=== PATIENT | female | born 1985 | race Caucasian/White ===

== ENCOUNTER → 2016-08-25 | Outpatient (CLI) | payer OTHER ==
[~2016-08-25] MED LIST: DSY/150 PO; KLN1X PO; PRENTAB26 PO; PRX/40 PO; PXL20 PO; WLLSR100 PO
== END | disposition home or self-care (01) ==
LOC: C.PAPS 14:29
PROVIDERS: ATTEND Obstetrics & Gynecology
DX: Z34.91 Encounter for supervision of normal pregnancy, unspecified, first trimester (principal)

== ENCOUNTER → 2016-08-25 | Outpatient (CLI) | payer OTHER ==
[2016-08-25 14:24] LABS: URINE APPEARANCE CLEAR (CLEAR); URINE BILIRUBIN NEG (NEG); URINE COLOR YELLOW; URINE NITRITE NEG (NEG); UROBILINOGEN NEG (NEG)
[2016-08-25 14:33] LABS: MANUAL MICROSCOPIC REQUIRED? NO; REVIEW REQ? NO
[2016-08-31 03:24] LABS: CHLAMYDIA TRACH RNA*** NOT DETECTED (NOT DETECTED); GC (NEIS GONORRHOEAE)RNA** NOT DETECTED (NOT DETECTED)
== END | disposition home or self-care (01) ==
LOC: C.LABSPEC 13:53
PROVIDERS: ATTEND Obstetrics & Gynecology
DX: O26.619 Liver and biliary tract disorders in pregnancy, unspecified trimester (principal); Z3A.00 Weeks of gestation of pregnancy not specified

== ENCOUNTER → 2016-08-25 | Outpatient (CLI) | payer OTHER ==
[2016-08-25 12:09] LABS: BASO % 0.2 %; BASO ABS # 0.02 K/uL (0-0.2); COMPLETE YES; EOS % 0.7 %; HEMATOCRIT 39.5 % (37-47); IG% 0.2 %; LYMPH % 23.2 %; LYMPH ABS # 2.87 K/uL (1.2-3.4); MEAN CELL VOLUME 83.3 fL (80-100); MEAN CORPUSCULAR HEMOGLOBIN 29.3 pg (25-34); MEAN CORPUSCULAR HGB CONC 35.2 g/dl (32-36); MONO % 4.5 %; NEUT % 71.2 %; PLATELET COUNT 291 K/uL (130-400); RED BLOOD COUNT 4.74 M/uL (4.2-5.4); WHITE BLOOD COUNT 12.35 K/uL (4.8-10.8)
[2016-09-02 18:18] LABS: CHENODEOXYCHOLIC ACID 1.9 umol/L (< OR = 3.1); CHOLIC ACID <0.5 umol/L (< OR = 1.8); DEOXYCHOLIC ACID <0.5 umol/L (< OR = 2.4); TOTAL BILE ACIDS 1.9 umol/L (< OR = 6.8)
== END | disposition home or self-care (01) ==
LOC: C.LAB1850 11:00
PROVIDERS: ATTEND Obstetrics & Gynecology
DX: Z34.90 Encounter for supervision of normal pregnancy, unspecified, unspecified trimester (principal)

== ENCOUNTER → 2016-10-24 | Outpatient (CLI) | payer OTHER ==
[2016-10-24 19:03] LABS: GTGD 50 Grams
[2016-10-26 17:41] LABS: AFP CONCENTRATION 50.4 NG/ML; AFP MULTIPLE OF MEDIAN 1.76; AFPTS GESTATIONAL AGE 17.9 WEEKS; AFPTS INSULIN DEP DIABETIC? NO; AFPTS MATERNAL WT 285 LBS; ALPHA-FETOPROTEIN RACE CAUCASIAN=W; ESTRIOL MULTIPLE OF MEDIAN 0.65; HISTORY OF NTD NO; INHIBIN A 393 PG/ML; INHIBIN A MOM 3.08; REPEAT SAMPLE? NO; hCG MULTIPLE OF MEDIAN 1.68
== END | disposition home or self-care (01) ==
LOC: C.LAB1850 12:26
PROVIDERS: ATTEND Obstetrics & Gynecology
DX: Z34.92 Encounter for supervision of normal pregnancy, unspecified, second trimester (principal)

== ENCOUNTER → 2017-01-10 | Outpatient (CLI) | payer OTHER ==
[~2017-01-10] MED LIST changes: +ACET-749 PO; +MTR600X PO; +OXYC-57 PO
[2017-01-10 15:02] LABS: URINE APPEARANCE CLEAR (CLEAR); URINE BILIRUBIN NEG (NEG); URINE COLOR YELLOW; URINE EPITHELIAL CELL AUTO >30 /lpf (0-5); URINE NITRITE NEG (NEG); URINE PH 7.5 (4.5-7.5); URINE SPECIFIC GRAVITY 1.015 (1.000-1.030); UROBILINOGEN NEG (NEG)
[2017-01-10 15:04] LABS: MANUAL MICROSCOPIC REQUIRED? NO; REVIEW REQ? NO
== END | disposition home or self-care (01) ==
LOC: C.LABSPEC 13:51
PROVIDERS: ATTEND Obstetrics & Gynecology
DX: Z34.93 Encounter for supervision of normal pregnancy, unspecified, third trimester (principal)

== ENCOUNTER → 2017-01-10 | Outpatient (CLI) | payer OTHER ==
[2017-01-10 13:30] LABS: HEMATOCRIT 32.6 % (37-47)
[2017-01-10 13:56] LABS: GTGD 50 Grams
== END | disposition home or self-care (01) ==
LOC: C.LAB1850 12:05
PROVIDERS: ATTEND Obstetrics & Gynecology
DX: Z34.93 Encounter for supervision of normal pregnancy, unspecified, third trimester (principal)

== ENCOUNTER → 2017-03-08 | Outpatient (CLI) | payer OTHER ==
[~2017-03-08] MED LIST changes: -ACET-749 PO; -MTR600X PO; -OXYC-57 PO
== END | disposition home or self-care (01) ==
LOC: C.LABSPEC 17:47
PROVIDERS: ATTEND Obstetrics & Gynecology
DX: Z34.93 Encounter for supervision of normal pregnancy, unspecified, third trimester (principal)

== ENCOUNTER 2017-03-28 23:13 | Inpatient (IN) | payer OTHER ==
[~2017-03-28] VITALS: Ht 167.6 cm; Wt 138.0 kg
[~2017-03-28 23:13] MED LIST changes: -PRENTAB26 PO
[2017-03-28] MEDS ORDERED: LACTATED RINGER'S 1000ML 1,000 ML IV SCH (23:33)
[2017-03-28] MEDS ORDERED: LACTATED RINGER'S 1000ML 1,000 ML IV PRN (23:33)
[2017-03-29 00:11] LABS: MEAN CELL VOLUME 82.9 fL (80-100); MEAN CORPUSCULAR HEMOGLOBIN 28.4 pg (25-34); MEAN CORPUSCULAR HGB CONC 34.2 g/dl (32-36); MEAN PLATELET VOLUME 11.7 fL (7.4-10.4); PLATELET COUNT 255 K/uL (130-400); RED BLOOD COUNT 3.98 M/uL (4.2-5.4); WHITE BLOOD COUNT 15.11 K/uL (4.8-10.8)
[2017-03-29] MEDS ORDERED: FENTANYL 2MCG/ML ROPIV 1.25MG/ML 100ML BAG EPI ONE (00:14)
[2017-03-29] MEDS ORDERED: BUPIVACAINE 0.25% 30 ML VIAL ONE (00:14)
[2017-03-29] MEDS ORDERED: EpHEDrine SULFATE INJ 50 MG/ML AMP ONE (00:14)
[2017-03-29] MEDS ORDERED: FENTANYL CITRATE INJ 50 MCG/1 ML 2 ML VIAL ONE (00:15)
[2017-03-29] MEDS ORDERED: LACTATED RINGER'S 1000ML 500 ML IV PRN (01:10)
[2017-03-29] MEDS ORDERED: NALOXONE HCL INJ 1 MG in SODIUM CHLORIDE 0.9% 1000ML 1,000 ML IV PRN (01:10)
[2017-03-29] MEDS ORDERED: ONDANSETRON INJ 2 MG/ML 2 ML VIAL IV PRN (01:15)
[2017-03-29] MEDS ORDERED: EpHEDrine SULFATE INJ 50 MG/ML AMP IV PRN (01:15)
[2017-03-29] MEDS ORDERED: DiphenhydrAMINE HCL 50 MG/ML VIAL IV PRN (01:15)
[2017-03-29] MEDS ORDERED: NALOXONE HCL INJ 0.4 MG/1 ML VIAL/CARP IV PRN (01:15)
[2017-03-29] MEDS ORDERED: NALBUPHINE HCL INJ 10 MG/ML AMP IV PRN (01:15)
[2017-03-29] MEDS ORDERED: FENTANYL 2MCG/ML ROPIV 1.25MG/ML 100ML BAG EPI PRN (01:15)
[2017-03-29 04:39] VITALS: Ht 167.6 cm; Wt 138.0 kg
[2017-03-29] MEDS ORDERED: PRENTAB26 PO (04:48)
[2017-03-29] MEDS ORDERED: ACETAMINOPHEN 325 MG TAB PO PRN (05:15)
[2017-03-29] MEDS ORDERED: LACTATED RINGER'S 1000ML 1,000 ML IV SCH (07:45)
[2017-03-29] MEDS ORDERED: OXYTOCIN 30 UNITS/500ML NSS IV ONE (09:02)
--- NOTE | 2017-03-29 09:23 | Vaginal Delivery Summary ---
Vaginal Delivery Summary The patient dilated to complete and pushed to deliver a viable male Apgars 8 and 9 via over intact perineum. Anterior shoulder initially delivered with maternal expulsive efforts prior to suctioning the mouth and nose. However, after suctioning mouth and nose shoulder had slipped back up. With effective maternal expulsive efforts and gentle downward traction anterior shoulder delivered followed by the remaining body. Infant vigorous and crying at . Cord clamped at 30 seconds of life. Infant to maternal abdomen. Cord doubly clamped and cut. Placenta delivered spontaneously and intact 3 vessel cord. Hemostasis was not achieved with dilute Pitocin and uterine massage. Bladder drained for clear yellow urine of approximately 100 cc's. 800 mg of rectal Cytotec administered to aid in hemostasis. Hemostasis then became more adequate. EBL 500 cc. Cervix and sulci intact. Mother and baby stable in recovery.
[2017-03-29] MEDS ORDERED: METHYLERGONOVINE MALEATE 0.2 MG/ML AMP IM ONE (09:30)
[2017-03-29] MEDS ORDERED: SUPERCREAM 0.870 % 15GM JAR EXT PRN (09:30)
[2017-03-29] MEDS ORDERED: HYDROCORTISONE ACETATE 25 MG SUPP PR PRN (09:30)
[2017-03-29] MEDS ORDERED: OXYTOCIN 30 UNITS/500ML NSS IV PRN (09:30)
[2017-03-29] MEDS ORDERED: LANOLIN OINT EXT PRN ×2 (09:30)
[2017-03-29] MEDS ORDERED: BENZOCAINE 20% AER SPR 82.5 GM CAN EXT PRN (09:30)
[2017-03-29] MEDS ORDERED: MISOPROSTOL 200 MCG TAB PR STA (09:36)
[2017-03-29] MEDS: OXYTOCIN INJ 20 UNITS in LACTATED RINGER'S 1000ML 1,000 ML IV SCH (10:20)
--- NOTE | 2017-03-29 11:54 | Anesthesia Procedure Note ---
Anesthesia Epidural Removal Nt Date & Time Mar 29, 2017 at 11:54 Vital Signs Pain Intensity: 0.0 Notes Mental Status: alert / awake / arousable, participated in evaluation Nausea / Vomiting: adequately controlled Pain: adequately controlled Airway Patency, RR, SpO2: stable & adequate BP & HR: stable & adequate Hydration State: stable & adequate Neuraxial Anesthesia: was administered Anesthetic Complications: no major complications apparent, pt satisfied with anesthetic care Epidural: removed without complications, with tip intact
[2017-03-29 12:15] VITALS: BP 120/71; PULSE 96; TEMP 36.9
[2017-03-29] MEDS: IBUPROFEN 600 MG TAB PO PRN (12:22)
[2017-03-29 12:25] VITALS: BP 120/71; PULSE 96; TEMP 36.9; O2SAT 99
[2017-03-29] MEDS: ACETAMINOPHEN 325 MG TAB PO PRN ×2 (13:35→18:43)
[2017-03-29 16:00] VITALS: BP 119/70; PULSE 90; TEMP 36.7
[2017-03-29 19:40] VITALS: BP 100/60; PULSE 96; TEMP 36.9
[2017-03-29] MEDS: DOCUSATE SODIUM 100 MG CAP PO SCH (19:42)
[2017-03-30 00:15] VITALS: BP 128/72; PULSE 90; TEMP 36.6
[2017-03-30 05:00] VITALS: BP 106/70; PULSE 88; TEMP 36.7
[2017-03-30] MEDS: IBUPROFEN 600 MG TAB PO PRN (05:14)
[2017-03-30 05:45] LABS: HEMATOCRIT 30.6 % (37-47)
--- NOTE | 2017-03-30 06:32 | Progress Note ---
Subjective Mar 30, 2017. Subjective conversation w/ patient, physical exam Ambulation: ambulating normally Voiding: no voiding problems Diet Tolerance: Regular Diet Lochia: Small Feeding Type: Bottle Feeding Pain: no pain issues Objective Vital Signs Date Time Temp Pulse Resp B/P (MAP) Pulse Ox O2 Delivery O2 Flow Rate FiO2 03/30/17 05:00 36.7 88 20 106/70 (82) Room Air 03/30/17 00:15 Room Air 03/30/17 00:15 36.6 90 18 128/72 (90) Room Air 03/29/17 19:40 36.9 96 18 100/60 (73) 03/29/17 16:15 Room Air 03/29/17 16:00 36.7 90 16 119/70 (86) Room Air 03/29/17 12:25 Room Air 03/29/17 12:25 36.9 96 16 120/71 (87) 99 Room Air 03/29/17 12:15 36.9 96 16 120/71 Physical Exam General Appearance: WELL-APPEARING, WD/WN, NO APPARENT DISTRESS Respiratory/Chest: lungs clear Cardiovascular: regular rate, rhythm Abdomen: non tender, soft Fundus: Firm, Relation to Umbilicus (2 down) Extremities: non-tender Laboratory Results Last 24 Hours Test 03/30/17 05:20 Hemoglobin 10.0 g/dL Hematocrit 30.6 % Assessment and Plan Post- Day#: 1 Continue Routine Care: stable, routine care, if baby able to be discharged, pt would like to go home. instructions reviewed. f/u 6 wk pp. expresses desire for interval tubal. rec she stop by office and see surgery nurse to sign MA tubal papers. she verbalized understanding.
--- NOTE | 2017-03-30 06:34 | Discharge Instructions ---
Discharge Instructions Date of Service Mar 30, 2017. Admission Reason for Admission: Check Labor Discharge Discharge Diagnosis / Problem: after delivery Discharge Goals Goal(s): Routine recovery after delivery Medications Continue Dispensed Medications: supercream, dermaplast, tucks, lansinoh Activity Recommendations Activity Limitations: as noted below ACTIVITY RECOMMENDATIONS: * Gradual return to full activity over the next 2-3 weeks. * No lifting - nothing heavier than baby over the next 2-3 weeks. * Do not engage in vigorous exercise, sexual activity or sports until cleared by your physician. * Do not drive or operate any motorized equipment until cleared by your physician. * You may shower/bathe daily. MEDICATIONS: For discomfort or pain, you may use Acetaminophen (Tylenol), Ibuprofen (Advil), or Naproxen (Aleve) following the package directions. For constipation you may use Colace following the package directions. BREAST CARE: If you are not breast feeding: * Wear a supportive bra 24 hours a day for one to two weeks. * Avoid stimulating your breasts and nipples as much as possible during the first few weeks after delivery. * When taking a shower, have the warm water hit your back, not breasts. * When your breasts feel full, apply ice packs. Usually three to four times a day helps ease the discomfort. * Take a mild pain medication (Tylenol / Motrin) when you are uncomfortable. If breast feeding: * Use breast milk to lubricate nipples. Lansinoh cream may be used for sore nipples. You do not need to remove cream prior to breast feeding. If using a different brand of cream, check the label for directions regarding removal of cream prior to nursing. * Wear a supportive bra. * If having problems with breasts or breast feeding, call a managing consultant clinical professor or your health care provider. EPISIOTOMY CARE: After delivery, if you have an episiotomy (stitches), the following steps will ease discomfort and aid healing. * For the first 24 hours after delivery, place ice packs next to your episiotomy to help reduce swelling. * After the first 24 hour-period, sitz baths, either portable or in the tub, are suggested. A shower with a shower arm sprayed over the episiotomy may be comforting. * Mary care should be done after each voiding and bowel movement. Squirt warm water from a plastic bottle over the perineum (region of the body between the anus and urinary opening) and pat dry. * Use Dermoplast to ease discomfort. Shake container. [place] directly over the episiotomy. Place a Tucks on a clean sanitary pad next to your episiotomy. SPECIAL CARE INSTRUCTIONS: When you are discharged from the hospital, it is important for you to follow the instructions listed below: * During the first week at home, you should be able to care for yourself and your baby. In addition, the usual light household activities are encouraged. * Limit your activities to the way you feel. Do not try to clean the house or move furniture. Be sensible. * If you actively engage in sports and have done so up until the time of your delivery, you may resume these activities as soon as you feel able. This may take up to one month or even longer. Use good judgment. * Continue to take your vitamins for at least six weeks after the of your baby. * Your diet need not be limited unless you were on a special diet before your delivery. Breast-feeding mothers need around 2500 calories per day and at least 64-80 ounces of fluid per day (8 to 10 glasses). * You should eat foods from the four major food groups. Crash diets or fad diets are to be avoided. Eating lean meats, fresh fruits and vegetables, low-fat dairy products, high fiber foods and a regular exercise program, will help you get back to your pre- weight without putting your health at risk. * Constipation is sometimes a problem after delivery. Take a mild laxative as needed. If breast feeding, Milk of Magnesia is acceptable to use. You may use a suppository or Fleets enema if no episiotomy. * A daily shower or tub bath is suggested. Be sure to thoroughly and gently dry the perineum. * A bloody vaginal discharge will usually continue until around four weeks post . A small amount of bleeding may continue for as long as six weeks. Vaginal discharge changes from the bright red bleeding after delivery to pink then brownish and finally yellowish-pink before becoming white and disappearing. * Bleeding may increase with activity. Your first period may come in 4-8 weeks. If you are breast feeding, your period may be delayed even longer. * [place] (sex) can begin whenever both you and your partner feel comfortable and do not have any form of genital infection. It is recommended that you wait at least six weeks for internal and external healing to occur. If you have questions, please talk to your health care practitioner. A condom should be used to prevent infection and . * Foreplay, gentle intercourse and lubrication is very important the first several times to prevent pain. A water-based lubricant such as K-Y jelly or Astroglide may be used. * If you have RH negative blood and your baby is RH positive, you will receive RHOGAM by injection prior to discharge. The nurse will give you a card to keep with you that has the date and place that you received RHOGAM after delivery. * During your care, you had a Rubella screen done to check for the presence of rubella antibodies in your blood. If your test was negative, you will receive a Rubella vaccine prior to discharge. This vaccine may cause a fever, soreness at the injection site and flu-like symptoms. If these symptoms persist, notify your health care practitioner. is not advised for one month after a Rubella vaccine. * Verbalizes understanding of car seat law as reviewed with patient nursing. * Car Seat hand-out given and reviewed with patient by nursing. * Shaken baby information reviewed with patient by nursing. Call you doctor if: * Heavy bleeding (saturating several pads an hour) or passing clots the size of your fist. * A fever >101 degrees F (38.3 degrees C) on two occasions four hours apart and /or chills. * Unusual pain in the pelvic or vaginal areas. * "Baby Blues" lasting longer than two weeks. If you have any questions or concerns, call your health care practitioner at . FOLLOW UP VISIT: * Please call the office at to schedule a 6 week examination. It is important you keep this appointment. It is important for you to make arrangements for either yearly or twice yearly check-ups thereafter. . Current Hospital Diet Patient's current hospital diet: Regular OB Diet Discharge Diet Recommended Diet: Regular Diet Pending Studies Studies pending at discharge: no Medical Emergencies . Who to Call and When: Medical Emergencies: If at any time you feel your situation is an emergency, please call 911 immediately. . Non-Emergent Contact Non-Emergency issues call your: Associate Professor Of Criminal Justice . . "Provider Documentation" section prepared by Racquel Aponte. . VTE Core Measure Inpt VTE Proph given/why not?: Treatment not indicated
[2017-03-30] MEDS: OXYTOCIN INJ 20 UNITS in LACTATED RINGER'S 1000ML 1,000 ML IV SCH (07:40)
[2017-03-30 08:00] VITALS: BP 103/66; PULSE 87; TEMP 36.5
[2017-03-30] MEDS ORDERED: PRENATAL VITAMIN TAB PO SCH ×2 (08:00)
[2017-03-30] MEDS: DOCUSATE SODIUM 100 MG CAP PO SCH (08:59)
[2017-03-30] MEDS ORDERED: NICOTINE 21 MG/24 HR TDSY TD SCH (09:00)
[2017-03-30 16:00] VITALS: BP 110/72; PULSE 88; TEMP 36.6
[2017-03-30 16:44] VITALS: BP_DIAS 72; PULSE 88; TEMP 36.6
[2017-03-30] MEDS ORDERED: BISACODYL 5 MG TABEC PO SCH (20:00)
== END 2017-03-30 17:05 | disposition home or self-care (01) | DRG 775 ==
LOC: C.LD 23:13 → C.OPB 23:13 → C.LD 23:35 → C.MS4N 03-29 12:06
PROVIDERS: ADMIT Obstetrics & Gynecology; ATTEND Obstetrics & Gynecology
PROC: 10E0XZZ Delivery of Products of Conception, External Approach (ICD-10-PCS; principal; 2017-03-29)
DX: O26.33 Retained intrauterine contraceptive device in pregnancy, third trimester (principal); Z68.42 Body mass index [BMI] 45.0-49.9, adult; O99.334 Smoking (tobacco) complicating childbirth; F17.210 Nicotine dependence, cigarettes, uncomplicated; O99.214 Obesity complicating childbirth; Z37.0 Single live birth; Z3A.40 40 weeks gestation of pregnancy

== ENCOUNTER → 2017-07-05 | Outpatient (CLI) | payer OTHER ==
[~2017-07-05] MED LIST changes: +ACET-749 PO; -DSY/150 PO; -KLN1X PO; +MTR600X PO; +OXYC-57 PO; -PRX/40 PO; -PXL20 PO; -WLLSR100 PO
== END | disposition home or self-care (01) ==
LOC: C.LAB 11:47
PROVIDERS: ATTEND Obstetrics & Gynecology
DX: Z86.14 Personal history of Methicillin resistant Staphylococcus aureus infection (principal)

== ENCOUNTER 2017-07-07 09:02 | Day surgery (SDC) | payer OTHER ==
[2017-06-21 09:00] VITALS: BMI 39.0
[2017-06-28 11:05] LABS: PREG INTERNAL NEGATIVE QC NEG CLEAR BACKGROUND; PREG INTERNAL POSITIVE QC POS CONTROL LINE
[~2017-07-07] VITALS: Ht 167.6 cm; Wt 109.1 kg
[~2017-07-07 09:02] MED LIST changes: -ACET-749 PO; +ACETAMINOPHEN 1000 MG/100 ML IV IV ONE; +LACTATED RINGER'S 1000ML 1,000 ML IV SCH; +LACTATED RINGER'S 1000ML 500 ML IV ONE; -MTR600X PO; -OXYC-57 PO
[2017-07-07 09:29] VITALS: BP 159/81; PULSE 70; TEMP 36.4; O2SAT 100; Ht 167.6 cm; Wt 109.1 kg
[2017-07-07] MEDS ORDERED: FENTANYL CITRATE INJ 50 MCG/1 ML 2 ML VIAL ONE ×3 (11:28→13:13)
[2017-07-07] MEDS ORDERED: GLYCOPYRROLATE INJ 0.2 MG/ML VIAL ONE (11:28)
[2017-07-07] MEDS ORDERED: NEOSTIGMINE METHYLSULFATE 5 MG/5 ML SYR ONE (11:28)
[2017-07-07] MEDS ORDERED: PROPOFOL IV EMULSION 10 MG/ML 20 ML VIAL IV ONE (11:28)
[2017-07-07] MEDS ORDERED: MIDAZOLAM HCL 1 MG/ML 2ML VIAL ONE (11:28)
[2017-07-07] MEDS ORDERED: LIDOCAINE HCL 2% 2 ML VIAL (20MG/ML) ONE (11:28)
[2017-07-07] MEDS ORDERED: ROCURONIUM BROMIDE 10 MG/ML 5 ML VIAL IV ONE (11:28)
[2017-07-07] MEDS ORDERED: BUPIVACAINE 0.5 % 5 MG/1 ML MPF 30ML VIAL ONE (11:39)
--- NOTE | 2017-07-07 11:57 | History & Physical Bridge Note ---
H&P Re-Evaluation Bridge Note: I have examined the patient, reviewed the History & Physical and in the interval since the performance of the History & Physical I have noted the following changes of clinical significance: No changes noted
[2017-07-07] MEDS ORDERED: SUCCINYLCHOLINE CHLORIDE 20 MG/ML 10 ML VIAL IV ONE (12:21)
[2017-07-07] MEDS ORDERED: EpHEDrine SULFATE INJ 50 MG/ML AMP IV PRN (12:30)
[2017-07-07] MEDS ORDERED: NALOXONE HCL 0.4 MG/1 ML VIAL/CARP IV PRN (12:30)
[2017-07-07] MEDS ORDERED: ATROPINE SULFATE 0.1 MG/ML 5ML SYR IV PRN (12:30)
[2017-07-07] MEDS ORDERED: LABETALOL HCL IV 5 MG/ML 20ML IV PRN (12:30)
[2017-07-07] MEDS ORDERED: PROMETHAZINE HCL INJ 12.5 MG in SODIUM CHLORIDE 0.9% 50ML 50 ML IV PRN (12:30)
[2017-07-07] MEDS ORDERED: ONDANSETRON INJ 2 MG/ML 2 ML VIAL IV PRN ×2 (12:30→13:45)
[2017-07-07] MEDS ORDERED: FLUMAZENIL 0.1 MG/1 ML 10 ML VIAL IV PRN (12:30)
[2017-07-07] MEDS: FENTANYL CITRATE INJ 50 MCG/1 ML 2 ML VIAL IV PRN ×4 (13:23→13:38)
[2017-07-07] MEDS ORDERED: SODIUM CHLORIDE 0.9% 1000ML 1,000 ML IV SCH (13:34)
--- NOTE | 2017-07-07 13:38 | Discharge Instructions ---
Discharge Instructions Date of Service Jul 07, 2017. Visit Reason for Visit: Request For Sterilization Discharge Discharge Diagnosis / Problem: recovey from laparoscopic tubal Discharge Goals Goal(s): Therapeutic intervention Activity Recommendations Activity Limitations: per Instructions/Follow-up section Anesthesia . Post Anesthesia Instructions: If you have had General Anesthesia or IV Sedation: * Do not drive today. * Resume driving when surgeon permits. * Do not make important decisions or sign legal documents today. * Call surgeon for: 1. Temperature elevations greater than 101 degrees F. 2. Uncontrollable pain. 3. Excessive bleeding. 4. Persistent nausea and vomiting. 5. Medication intolerance (nausea, vomiting or rash). * For nausea and vomiting use only clear liquids such as: tea, soda, bouillon until nausea subsides, then gradually increase diet as tolerated. * If you have any concerns or questions, call your surgeon's office. If physician is unavailable and it is an emergency, call 911 or go to the nearest emergency room. . Instructions / Follow-Up Instructions / Follow-Up ACTIVITY RECOMMENDATIONS: * Rest the first 2-3 days. You should be back to your normal activity levels by day 3. * No heavy lifting for 2 weeks. * No intercourse, tampons or douching for 1-2 weeks. * You may shower the next day. * Do not drive anytime that you are taking narcotic pain medicines. RETURN TO SCHOOL/WORK: * May return to school or work after 2-3 days. DIET: Nausea may occur in the immediate post-operative period. If so, take clear liquids such as tea, bouillon, apple juice until all nausea has subsided, then resume usual diet. MEDICATIONS: Resume previous medications unless instructed otherwise by your surgeon. Ibuprofen 200mg 2-3 tablets every 4-6 hours as needed -- OR -- Aleve 2 tablets every 8-12 hours as needed for post-operative discomfort Medications are over the counter. Tylenol may be used if above medications are contraindicated or not preferred. Medication should be taken with food or milk. Do not take on an empty stomach. SPECIAL CARE INSTRUCTIONS: * Check temperature twice daily for one week. report any elevation over 101 degrees. * You may experience some vagina spotting and/or bleeding. This is normal for 1 -2 weeks and should not be heavier than a normal period. If it is unusual in amount, call your physician. * Post-operative discomfort may consist of a sore throat, a "bloated" feeling and pain in the shoulders. these are normal symptoms, which usually only last for 2-3 days. * Remove band-aids tomorrow and shower. There is no need to replace band-aids unless there is drainage or discomfort. FOLLOW UP VISIT: Call your doctor's office for a post-operative 2 week visit if not already scheduled. Diet Recommendations Recommended Home Diet: resume previous diet Procedures Procedures Performed: Laparoscopic Tubal Sterilization Pending Studies Studies pending at discharge: no Medical Emergencies . Who to Call and When: Medical Emergencies: If at any time you feel your situation is an emergency, please call 911 immediately. . Non-Emergent Contact Non-Emergency issues call your: Verification Clerk . . "Provider Documentation" section prepared by Odette Davis . [place] Drug Monitoring Program Search Results: no issues identified
[2017-07-07] MEDS ORDERED: IBUPROFEN 600 MG TAB PO PRN (13:45)
[2017-07-07] MEDS: HYDROmorphone INJ 1 MG/ML SYR ONE (13:45)
[2017-07-07] MEDS ORDERED: KETOROLAC TROMETHAMINE 30 MG/ML VIAL IV. PRN (13:45)
[2017-07-07] MEDS ORDERED: ACETAMINOPHEN/CODEINE 300/30MG TAB PO PRN (13:45)
[2017-07-07] MEDS ORDERED: PROMETHAZINE HCL INJ 25 MG in SODIUM CHLORIDE 0.9% 50ML 50 ML IV PRN (13:45)
--- NOTE | 2017-07-07 13:52 | [facility] Post Operative Brief Note ---
Immediate Operative Summary Operative Date Jul 07, 2017. Pre-Operative Diagnosis Elective sterilization Post-Operative Diagnosis Same Procedure(s) Performed Laparoscopic Tubal Sterilization Surgeon Dr Gricelda Mejia Bulb Grader Surgeon(s) none Estimated Blood Loss 5ML Findings normal uterus tubes & ovaries. no evidence of intraperitoneal IUD. Fluids (cc crystalloids) 1000 Specimens NONE Drains none Anesthesia GET Complication(s) None Disposition Recovery Room / PACU
[2017-07-07] MEDS ORDERED: ACET-749 PO (13:53)
[2017-07-07] MEDS ORDERED: HYDROmorphone INJ 2 MG/ML SYR/VIAL IV PRN (14:00)
[2017-07-07] MEDS ORDERED: HYDROmorphone INJ 1 MG/ML SYR ONE (14:08)
[2017-07-07] MEDS ORDERED: MTR600X PO (14:08)
[2017-07-07] MEDS ORDERED: NURSING VERBAL MED ORDER ONE (14:10)
[2017-07-07] MEDS ORDERED: OXYC-57 PO (14:10)
[2017-07-07] MEDS ORDERED: KETOROLAC TROMETHAMINE 30 MG/ML VIAL ONE (14:11)
[2017-07-07] MEDS ORDERED: OXYCODONE/ACETAMINOPHEN 5-325 TAB PO PRN (14:15)
--- NOTE | 2017-07-07 14:28 | Anesthesiology Progress Note ---
Anesthesia Post Op Note Date & Time Jul 07, 2017 at 14:28 Vital Signs Pain Intensity: 4 Vital Signs Past 12 Hours Date Time Temp Pulse Resp B/P (MAP) Pulse Ox O2 Delivery O2 Flow Rate FiO2 07/07/17 14:25 55 16 117/80 98 Room Air 07/07/17 14:15 47 18 120/70 93 Room Air 07/07/17 14:05 60 16 112/71 98 Room Air 07/07/17 13:55 48 19 116/71 100 Room Air 07/07/17 13:45 50 18 133/77 100 Oxymask 4 07/07/17 13:35 48 19 119/78 100 Oxymask 10 07/07/17 13:25 65 13 144/85 100 Oxymask 10 07/07/17 13:18 37.3 65 15 146/98 99 Oxymask 10 07/07/17 09:29 36.4 70 19 159/81 (107) 100 Room Air Notes Mental Status: alert / awake / arousable, participated in evaluation Pt Amnestic to Procedure: Yes Nausea / Vomiting: adequately controlled Pain: adequately controlled Airway Patency, RR, SpO2: stable & adequate BP & HR: stable & adequate Hydration State: stable & adequate Anesthetic Complications: no major complications apparent
--- NOTE | 2017-07-07 14:34 | OPERATIVE REPORT ---
DATE OF OPERATION: 07/07/2017 PREOPERATIVE DIAGNOSIS: Morbid obesity. Undesired and unwanted fertility. Failed prior control options. POSTOPERATIVE DIAGNOSIS: Same. PROCEDURE: Laparoscopic bilateral tubal cauterization. SURGEON: Dr. Odette Mejia. BLOOD LOSS: Less than 5 mL. ANESTHESIA: General endotracheal. HISTORY OF PRESENT ILLNESS: The patient is a 31-year-old 3, para 1-1-1-2 white female who delivered on 03/29/2017 of this year. The resulted from a failed IUD and she had a flat plate looking for the missing IUD after delivery and it was not seen. She is requesting permanent sterilization because of her failed attempts at other control options and she understands the risks of procedure including risks for future pregnancies and she is willing to proceed. GROSS FINDINGS: External genitalia within normal limits. Cervix is without lesions. Uterus is small, mobile and normal in contour. There are no adnexal masses present. Under direct laparoscopic visualization the pelvis was free of any adhesions. Both ovaries and fallopian tubes are grossly normal. The appendix could not be seen. The gallbladder appeared to be normal as was the liver edge. There is no evidence of a retained IUD upon inspection of the abdomen as could be seen through the laparoscope. OPERATION AND FINDINGS: PROCEDURE: After the patient received adequate general endotracheal anesthesia, she was prepped and draped in the usual sterile fashion. A weighted speculum was placed in the vagina and the anterior lip of the cervix was grasped with a single tooth tenaculum. A Grant's cannula was placed in the cervical canal. The bladder was emptied prior to placing the Grant's cannula. The gloves were changed. A subumbilical incision was made with the scalpel. A long Veress needle was placed into the peritoneal cavity, approximately 3.5 liters of CO2 were instilled into the peritoneal cavity. The Veress needle was then removed and the long 12 mm trocar was placed in the peritoneal cavity. After the scope was placed findings were noted as above. The left fallopian tube was identified and followed to its fimbriated end. It was grasped in the mid portion and cauterized until loss of resistance in 3 contiguous sites. The right fallopian tube was then identified and followed to its fimbriated end. It too was cauterized to loss of resistance in 3 contiguous sites. After examining the abdomen as much as could be done with the laparoscope case was terminated. As much of the CO2 gas was expelled through the incision. The fascial layer was closed with a [id number] stitch of 0 Vicryl. The skin edges were then reapproximated using a subcuticular stitch of 4-0 Monocryl. The Grant's cannula and single tooth tenaculum were removed from the cervix and hemostasis was noted to be excellent. The patient tolerated the procedure well and was stable upon arrival in recovery room. I attest to the content of the Intraoperative Record and any orders documented therein. Any exception s are noted below.
[2017-07-07 14:45] VITALS: BP 113/66; PULSE 52; TEMP 36.7; O2SAT 94
[2017-07-07 15:15] VITALS: BP 120/67; PULSE 64; TEMP 36.7; O2SAT 98
[2017-07-07 15:45] VITALS: BP 117/69; PULSE 65; TEMP 36.6; O2SAT 98
== END 2017-07-07 16:05 | disposition home or self-care (01) ==
LOC: C.ACU 09:02
PROVIDERS: ATTEND Obstetrics & Gynecology
DX: Z30.2 Encounter for sterilization (principal); Z86.14 Personal history of Methicillin resistant Staphylococcus aureus infection; E66.01 Morbid (severe) obesity due to excess calories; Z83.3 Family history of diabetes mellitus; Z80.0 Family history of malignant neoplasm of digestive organs; Z80.49 Family history of malignant neoplasm of other genital organs; F17.200 Nicotine dependence, unspecified, uncomplicated; Z68.42 Body mass index [BMI] 45.0-49.9, adult; K21.9 Gastro-esophageal reflux disease without esophagitis; Z87.442 Personal history of urinary calculi